=== PATIENT | female | born 1945 | race Caucasian/White ===

== ENCOUNTER 2018-03-02 15:38 | Inpatient (IN) | payer MEDICAID, MEDICARE ==
[~2018-03-02] VITALS: Ht 152.4 cm; Wt 40.8 kg
--- NOTE | 2018-03-02 16:00 | NUR ---
SENT FROM [facility] FOR TACHYCARDIA AND HIGH BLOOD PRESSURE. PATIENT WAS ABLE TO COMPLETE HD TODAY. PATIENT IS AWAKE AND ALERT. NOT IN DISTRESS. SKIN IS WARM TO TOUCH AND NON DIAPHORETIC,. PT IS AFEBRILE. VSS
--- NOTE | 2018-03-02 16:06 | NUR ---
JOANNE [phone], BAG ADJUSTER OF [facility]ARD AND CARE
[2018-03-02 17:04] LABS: BASOPHILS # (AUTO) 0.1 /CMM (0.0-0.2); EOSINOPHILS % (AUTO) 0.1 % (0.0-6.0); HEMATOCRIT 39 % (33-45); HEMOGLOBIN 12.8 g/dL (11.5-14.8); LYMPHOCYTES # (AUTO) 0.5 /CMM (0.8-4.8); LYMPHOCYTES % (AUTO) 5.8 % (20.0-44.0); MEAN CORPUSCULAR HGB CONC 33 g/dl (31.0-36.0); MEAN CORPUSCULAR VOLUME 96 fL (82-100); MONOCYTES # (AUTO) 0.8 /CMM (0.1-1.30); MONOCYTES % (AUTO) 8.7 % (2.0-12.0); NEUTROPHILS # (AUTO) 7.3 /CMM (1.8-8.9); NEUTROPHILS % (AUTO) 84.4 % (43.0-81.0); PLATELET COUNT (AUTO) 270 /CMM (150-450); RDW COEFFICIENT OF VARIATION 15.2 (11.5-15.0); RED BLOOD CELL COUNT(AUTO) 3.99 MIL/uL (4.0-5.2); WHITE BLOOD COUNT (AUTO) 8.8 K/uL (4.3-11.0)
[2018-03-02 17:06] LABS: APPEARANCE,URINE Cloudy (CLEAR); BILIRUBIN,URINE Negative (NEGATIVE); BLOOD, URINE Small Ery/uL (NEGATIVE); COLOR,URINE Yellow (YELLOW); KETONES,URINE Negative (NEGATIVE); LEUKOCYTE ESTERASE ,URINE Large (NEGATIVE); NITRITE, URINE Negative (NEGATIVE); PH,URINE 7.5 (5.0-8.0); PROTEIN,URINE 100 mg/dl (NEGATIVE); UGLUCOSE Negative (NEGATIVE); UROBILINOGEN,URINE 0.2 EU/dL (0.2)
[2018-03-02 17:13] LABS: CALCIUM, SERUM 8.8 mg/dL (8.5-10.1); CARBON DIOXIDE 32 mmol/L (21-32); CHLORIDE 95 mmol/L (98-107); GLUCOSE 99 mg/dL (74-106); POTASSIUM 3.8 mmol/L (3.5-5.1); SODIUM SERUM 130 mmol/L (136-145); UREA NITROGEN, BLOOD 21 mg/dL (7-18)
[2018-03-02 17:15] LABS: BACTERIA,URINE Many /HPF (None Seen); SQUAMOUS EPITHELIAL CELL,UR Rare /HPF (None Seen); WBC,URINE TOO NUMEROUS TO COUN /HPF (0-3)
[2018-03-02 17:19] LABS: ALANINE AMINOTRANSFERASE 11 U/L (12-78); ALBUMIN 3.3 g/dL (3.4-5.0); ALKALINE PHOSPHATASE 75 U/L (46-116); ASPARTATE AMINOTRANSFERASE 15 U/L (15-37); BILIRUBIN,DIRECT 0.1 mg/dL (0.0-0.2); BILIRUBIN,TOTAL 0.4 mg/dL (0.2-1.0); INR 0.95 (0.85-1.15); TOTAL PROTEIN, SERUM 7.5 g/dL (6.4-8.2)
[2018-03-02 17:21] LABS: PHOSPHORUS 2.8 mg/dL (2.5-4.9); TROPONIN I < 0.017 ng/mL (0.00-0.056)
[2018-03-02 17:22] LABS: MAGNESIUM 2.1 mg/dL (1.8-2.4)
[2018-03-02 17:43] LABS: THYROID STIMULATING HORMONE 2.114 uIU/mL (0.358-3.74)
--- NOTE | 2018-03-02 17:58 | NUR ---
CALLED DR. CLARK [phone] AND PAGED
[2018-03-02] MEDS ORDERED: CEFTRIAXONE 1 G in IV D5W 50 ML IV ONE (18:00)
--- NOTE | 2018-03-02 18:23 | NUR ---
CALLED NURSING TELETYPE INSTALLER AND REQUESTED A TELE BED FOR THIS PT.
[2018-03-02] MEDS ORDERED: PRAV20TA4 PO (18:35)
[2018-03-02] MEDS ORDERED: TRAM50TA2 PO (18:35)
[2018-03-02] MEDS ORDERED: DONE10TA44 PO (18:35)
[2018-03-02] MEDS ORDERED: ASPI-1169 PO (18:35)
[2018-03-02] MEDS ORDERED: DOCU100C36 PO (18:35)
[2018-03-02] MEDS ORDERED: LEVE500T20 PO (18:35)
[2018-03-02] MEDS ORDERED: TEMA15CA PO (18:35)
[2018-03-02] MEDS ORDERED: DIVA-78 PO (18:35)
--- NOTE | 2018-03-02 19:53 | NUR ---
REPORT GIVEN TO CHARLOTTE GREEN FOR ADMISSION
--- NOTE | 2018-03-02 19:56 | NUR ---
PT IS ASSIGNED TO TELE RM#: [id number], DX: TACHYCARDIA/UTI, AND ACCEPTING MD: DR ADAMS
[2018-03-02 20:00] VITALS: BP 106/45
--- NOTE | 2018-03-02 20:15 | NUR ---
Pt BEING TRANSFERRED PER ACLS PROTOCOL.
--- NOTE | 2018-03-02 21:25 | NUR ---
RN NOTES RECEIVED PATIENT REPORT FROM ER NURSE PADMAJA. RECEIVED PATIENT ON GURNEY ALERT/ ORIENTED X2-3 WITH SOME EPISODES OF CONFUSION. PATIENT IS ON RA WITH SPO2 OF 97%, SR ON MANAGER INVENTORY CONTROL, VITAL SIGHS ARE WNL, NO SOB, NO RESPIRATORY DISTRESS NOTED AT THIS TIME. SKIN ASSESSMENT IS DONE AND PICTURES IN CHART, WOUND CARE CONSULT IN PLACE. RIGHT CHEST WALL HD CATHETER IN PLACE, INTACT. LEFT UPPER ARM AV SHUNT DRESSING IS INTACT WITH STITCHES. RIGHT UPPER ARM 22G IV LINE IS IN PLACE AND WITH FLUSHING PATIENT COMPLAINS OF PAIN. ALL SAFETY MEASURES ARE IMPLEMENTED, BED IN LOW, LOCKED POSITION, CALL LIGHT IN REACH, DIRECTED TO THE UNIT. WILL CONT. TO MONITOR.
[2018-03-02 22:00] VITALS: BP 106/45
--- NOTE | 2018-03-02 22:10 | NUR ---
RN NOTES CALL THE MD SHTORCH FOR ADMIT TO ORDER AND, DIET ORDER, MEDICATION ORDERS. NEW ORDERS ARE IN PLACE RENAL DIET, ADMIT TO TELEMETRY, CONT. HOME MEDICATIONS FOR NOW.
[2018-03-03] VITALS: BP 106/43
--- NOTE | 2018-03-03 | NUR ---
RN NOTES TALKED TO JOANNE [phone], INSOLE DOUBLER OF BOARD AND CARE TO VERIFY PATIENT'S MEDICATION LAST ADMINISTRATION TIME.
[2018-03-03] MEDS: DONEPEZIL 5 MG TABLET PO SCH ×2 (01:03→17:41)
[2018-03-03] MEDS: LEVETIRACETAM (250 MG) 250 MG TABLET PO SCH ×3 (01:03→16:52)
[2018-03-03] MEDS: TRAMADOL HCL 50 MG TABLET PO PRN ×2 (01:08→14:13)
[2018-03-03 04:00] VITALS: BP 117/46
--- NOTE | 2018-03-03 07:30 | NUR ---
DOG TRAINER INITIAL NOTES PATIENT A/OX3 IN BED AWAKE. ON RA 100% O2 SAT. SR 69. PT IS INCONTINENT. WILL CONTINUE SAFETY PRECAUTIONS. CALL LIGHT IN REACH. PT SOMETIMES CONFUSED.
[2018-03-03 08:00] VITALS: BP 147/59
[2018-03-03] MEDS: DOCUSATE SODIUM 100 MG CAPSULE PO SCH ×2 (08:44→16:52)
[2018-03-03] MEDS: DIVALPROEX SODIUM 500 MG TABLET.DR PO SCH (08:44)
[2018-03-03] MEDS: ASPIRIN 81 MG TAB.CHEW PO SCH (08:44)
--- NOTE | 2018-03-03 10:30 | NUR ---
COMMISSION BROKER NOTES PT EVAL ROUNDED WITH PATIENT: PATIENT REQUIRES MOD ASSISTANCE FROM BED TO CHAIR. CANNOT WALK UNASSISTED.
--- NOTE | 2018-03-03 11:00 | NUR ---
ms rn patient transferred to room 115 1 for isolation precaution purpose of room mate.
--- NOTE | 2018-03-03 11:30 | NUR ---
NEONATAL SURGEON NOTES CORE MACHINE OPERATOR ROUNDED WITH PT. ORDERED RENAL CHOPPED DIET WITH NEPRO SHAKE BID.
--- NOTE | 2018-03-03 11:36 | NUR ---
TRANSVERSE ABDOMINAL MUSCLE NURSE NOTES WOUND NURSE ROUNDING WITH PATIENT: REDNESS ON SACRUM AND GROIN AND SHOULDER SCAB.
--- NOTE | 2018-03-03 11:55 | NUR ---
WOUND CARE CONSULT: PT PRESENTS WITH SACRAL SCARRING, RASH TO BUTTOCKS AND PERINEUM, RT SHOULDER ABRASION, LEFT SHOULDER SCAR, RT UPPER BACK SCAB AND LEFT ARM INCISION WITH IDA (DRESSING DRY/INTACT), ALL PRESENT ON ADMISSION. RECOMMEND SURGICAL FOLLOWUP FOR LEFT ARM INCISION. PT ABLE TO ASSIST WITH TURNING AND REPOSITIONING IN BED. PT STATES THAT SHE SCRATCHED HER SHOULDERS WITH HER FINGERNAILS. RECOMMENDATIONS MADE FOR WOUND CARE AND SKIN PROTECTION. DISCUSSED WITH NURSING STAFF. WILL SEE PRN. LEWIS IN AGREEMENT WITH PLAN OF CARE. Addendum: 03/03/18 at 1158 by LORENZO DAVILA WNDNU Amended: Links added.
[2018-03-03 12:00] VITALS: BP 154/64
[2018-03-03] MEDS ORDERED: NEPRO VAN 237 ML CAN PO PRN (12:30)
[2018-03-03] MEDS ORDERED: Z GUARD REMEDY 2 OZ OINT TP PRN (12:30)
[2018-03-03] MEDS: Z GUARD REMEDY 2 OZ OINT TP SCH (13:18)
[2018-03-03 15:41] LABS: MAGNESIUM 2.2 mg/dL (1.8-2.4)
[2018-03-03 15:49] LABS: TROPONIN I < 0.017 ng/mL (0.00-0.056)
[2018-03-03 15:51] LABS: CHOLESTEROL 112 mg/dL (<200); HDL CHOLESTEROL 48 mg/dL (40-60); LDL 60 mg/dL (0-99); TRIGLYCERIDES 68 mg/dL (30-150)
[2018-03-03 16:00] VITALS: BP 158/69
--- NOTE | 2018-03-03 16:46 | NUR ---
ms rn on bed, no distress noted, all needs attended.
[2018-03-03] MEDS: CLOTRIMAZOLE 1% 15 GM TUBE TP SCH (16:52)
--- NOTE | 2018-03-03 18:57 | NUR ---
DINING CAR CONDUCTOR ENDING NOTES ENDORSED PT TO PM NURE FOR CONTINUING CARE. PT IS STABLE. SAFETY PRECAUTIONS MAINTAINED. CALL LIGHT IN REACH. NOT IN DISTRESS.
[2018-03-03 20:00] VITALS: BP 153/62
[2018-03-03] MEDS: ATORVASTATIN 10 MG TABLET PO SCH (21:45)
[2018-03-03] MEDS: TEMAZEPAM 15 MG CAPSULE PO SCH (21:45)
[2018-03-03] MEDS ORDERED: PRAVASTATIN SODIUM 20 MG TABLET PO SCH (22:00)
[2018-03-04] VITALS: BP 156/72
[2018-03-04 04:00] VITALS: BP 162/73
--- NOTE | 2018-03-04 06:42 | NUR ---
RN NOTES PATIENT IN BED RESTING COMFORTABLY WITH NO RESPIRATORY DISTRESS OR SHORTNESS OF BREATH. ON ROOM AIR TOLERATING WELL. ABDOMEN SOFT AND NON TENDER. ALERT WITH CONFUSION. NO COMPLAINT OF PAIN OR DISCOMFORT. NO SIGNIFICANT CHANGE OF CONDITION. KEPT CLEAN AND DRY. WILL ENDORSE TO AM SHIFT FOR CONTINUITY OF CARE
--- NOTE | 2018-03-04 07:15 | NUR ---
TELE/ RN INITIAL NOTES RECEIVED PT IN BED, A/O X2. SINUS TACHY HR:102 ON TELEMONITOR. DENIES ANY PAIN AT THIS TIME. TOLERATING ROOM AIR WELL. HD CATH INTACT. MAGAN G22 SL INTACT AND PATENT. HOB ELEVATED. SAFETY MEASURES IN PLACED. CALL LIGHT WITHIN REACH. WILL CONT TO MONITOR
[2018-03-04 08:00] VITALS: BP 128/88
[2018-03-04] MEDS: DIVALPROEX SODIUM 500 MG TABLET.DR PO SCH (08:25)
[2018-03-04] MEDS: LEVETIRACETAM (250 MG) 250 MG TABLET PO SCH ×2 (08:25→17:11)
[2018-03-04] MEDS: ASPIRIN 81 MG TAB.CHEW PO SCH (08:25)
[2018-03-04] MEDS: DOCUSATE SODIUM 100 MG CAPSULE PO SCH ×2 (08:25→17:11)
[2018-03-04] MEDS: CLOTRIMAZOLE 1% 15 GM TUBE TP SCH ×2 (08:33→17:13)
[2018-03-04] MEDS: Z GUARD REMEDY 2 OZ OINT TP SCH (08:34)
[2018-03-04 16:00] VITALS: BP 147/69
--- NOTE | 2018-03-04 17:00 | NUR ---
RN NOTES DIALYSIS NURSE AT BEDSIDE. DIALYSIS STARTED
[2018-03-04] MEDS: DONEPEZIL 5 MG TABLET PO SCH (17:11)
--- NOTE | 2018-03-04 18:00 | NUR ---
RN NOTES PT STILL ON HD. IV CEFTRIAXONE NOT YET GIVEN. TO BE GIVEN AFTER HD
--- NOTE | 2018-03-04 19:21 | NUR ---
RN NOTES PT IN STABLE CONDITION. NO ACUTE DISTRESS NOTED THROUGHOUT SHIFT. STILL ONGOING HD. ASPIRATION AND SAFETY MEASURES OBSERVED AT ALL TIMES. ALL NEEDS ANTICIPATED. IV CEFTRIAXONE TO BE GIVEN BY PM RN AFTER HD. ENDORSED TO PM SHIFT RN
[2018-03-04 20:00] VITALS: BP 100/56
[2018-03-04] MEDS: CEFTRIAXONE 1 G in IV D5W 50 ML IV SCH (20:33)
[2018-03-04] MEDS: ATORVASTATIN 10 MG TABLET PO SCH (21:21)
[2018-03-04] MEDS: TEMAZEPAM 15 MG CAPSULE PO SCH (21:21)
[2018-03-05 04:00] VITALS: BP 147/79
--- NOTE | 2018-03-05 06:48 | NUR ---
RN NOTES PATIENT AWAKE IN BED, WITH NO DISTRESS NOTED. ALERT WITH CONFUSION. NO COMPLAINT OF PAIN OR DISCOMFORT. ON ROOM AIR TOLERATING WELL. NO SIGNIFICANT CHANGE OF CONDITION. KEPT CLEAN AND DRY. WILL ENDORSE TO AM SHIFT FOR CONTINUITY OF CARE.
[2018-03-05 07:30] LABS: BASOPHILS % (AUTO) 0.4 % (0.0-2.0); EOSINOPHILS % (AUTO) 0.2 % (0.0-6.0); HEMATOCRIT 33 % (33-45); HEMOGLOBIN 10.8 g/dL (11.5-14.8); LYMPHOCYTES # (AUTO) 0.8 /CMM (0.8-4.8); LYMPHOCYTES % (AUTO) 18.9 % (20.0-44.0); MEAN CORPUSCULAR HGB CONC 33 g/dl (31.0-36.0); MEAN CORPUSCULAR VOLUME 99 fL (82-100); MONOCYTES # (AUTO) 0.6 /CMM (0.1-1.30); NEUTROPHILS % (AUTO) 66.5 % (43.0-81.0); PLATELET COUNT (AUTO) 346 /CMM (150-450); RDW COEFFICIENT OF VARIATION 15.3 (11.5-15.0); RED BLOOD CELL COUNT(AUTO) 3.37 MIL/uL (4.0-5.2); WHITE BLOOD COUNT (AUTO) 4.5 K/uL (4.3-11.0)
[2018-03-05 07:34] LABS: CALCIUM, SERUM 8.6 mg/dL (8.5-10.1); CARBON DIOXIDE 25 mmol/L (21-32); CHLORIDE 103 mmol/L (98-107); CREATININE 2.6 mg/dL (0.6-1.3); GLUCOSE 90 mg/dL (74-106); PHOSPHORUS 3.2 mg/dL (2.5-4.9); POTASSIUM 4.4 mmol/L (3.5-5.1); SODIUM SERUM 137 mmol/L (136-145); UREA NITROGEN, BLOOD 25 mg/dL (7-18)
[2018-03-05 07:44] VITALS: BP 133/96
[2018-03-05 08:00] VITALS: BP 133/96
[2018-03-05] MEDS: Z GUARD REMEDY 2 OZ OINT TP SCH (08:26)
[2018-03-05] MEDS: DOCUSATE SODIUM 100 MG CAPSULE PO SCH ×2 (08:26→16:27)
[2018-03-05] MEDS: CLOTRIMAZOLE 1% 15 GM TUBE TP SCH ×2 (08:26→16:27)
[2018-03-05] MEDS: DIVALPROEX SODIUM 500 MG TABLET.DR PO SCH (08:26)
[2018-03-05] MEDS: ASPIRIN 81 MG TAB.CHEW PO SCH (08:27)
[2018-03-05] MEDS: LEVETIRACETAM (250 MG) 250 MG TABLET PO SCH ×2 (08:27→16:27)
[2018-03-05] MEDS: TRAMADOL HCL 50 MG TABLET PO PRN (12:04)
--- NOTE | 2018-03-05 12:19 | NUR ---
Repositioned patient. DAIRY FARMWORKER gave her a tray of food.
--- NOTE | 2018-03-05 16:39 | NUR ---
Repositioned patient. Took pictures of skin problems and placed in chart. Patient awaiting ambulance. Left message for Hillary with [facility] to return call with report prior to discharge.
[2018-03-05] MEDS: CEFTRIAXONE 1 G in IV D5W 50 ML IV SCH (17:05)
--- NOTE | 2018-03-05 18:30 | NUR ---
Discharged patient with caregiver, Hillary, to take patient to her home in private auto. She had been given all instructions and a copy of them. Intravenous site discontinued. Left wrist identification discontinued. Patient taken out via wheelchair with AUTO BODY STRAIGHTENER assistance. Patient was buckled into white [employer] automobile by her caregiver, Hillary. Belongings of clothing missing from inventory. Brown wrist watch present upon discharge.
== END 2018-03-05 18:22 | disposition home or self-care (01) | DRG 689 ==
LOC: ER 15:40 → TELE1 20:04 → MEDSG1 03-04 09:15
PROVIDERS: ADMIT Internal Medicine; ATTEND Internal Medicine
PROC: 5A1D70Z Performance of Urinary Filtration, Intermittent, Less than 6 Hours Per Day (ICD-10-PCS; principal; 2018-03-04)
DX: N39.0 Urinary tract infection, site not specified (principal); N18.6 End stage renal disease; I12.0 Hypertensive chronic kidney disease with stage 5 chronic kidney disease or end stage renal disease; R00.0 Tachycardia, unspecified; G40.909 Epilepsy, unspecified, not intractable, without status epilepticus; Z99.2 Dependence on renal dialysis; M19.90 Unspecified osteoarthritis, unspecified site; M81.0 Age-related osteoporosis without current pathological fracture; D64.9 Anemia, unspecified; T38.0X5A Adverse effect of glucocorticoids and synthetic analogues, initial encounter; Y92.89 Other specified places as the place of occurrence of the external cause; F03.90 Unspecified dementia, unspecified severity, without behavioral disturbance, psychotic disturbance, mood disturbance, and anxiety
CPT/HCPCS: 36415; 71045-TC; 80048-TC; 80061-TC; 80076-TC; 81000-TC; 83605-TC; 83735-TC; 84100-TC; 84439-TC; 84443-TC; 84484-TC; 85025-TC; 85730-TC; 87040-TC; 87081-TC; 87086-TC; 87186-TC; 90935-TC; 93307-TC; A4606; J0696; J7030; J7060; Z7610

== ENCOUNTER 2019-05-20 18:06 | Emergency (ER) | payer MEDICARE ==
[~2019-05-20] VITALS: Ht 162.6 cm; Wt 59.0 kg
[~2019-05-20 18:06] MED LIST: ASPI-1169 PO; DIVA-78 PO; DOCU100C36 PO; DONE10TA44 PO; LEVE500T20 PO; PRAV20TA4 PO; TEMA15CA PO; TRAM50TA2 PO
--- NOTE | 2019-05-20 18:11 | NUR ---
BIB PEST TECHNICIAN FROM [facility] FOR COUGH, CONGESTION, UPPER CHEST PAIN AND DIARRHEA FOR THE PAST 3 DAYS, TO ER BED 10, HOOKED TO MONITOR, CHANGED TO HOSP GOWN, PROVIDED W WARM BLANKET, AWAITING MD CREWS.
--- NOTE | 2019-05-20 18:19 | NUR ---
DR CANTU AT BEDSIDE
--- NOTE | 2019-05-20 18:25 | NUR ---
RAPID FLU SWAB SENT TO LAB
--- NOTE | 2019-05-20 18:29 | NUR ---
SON: ISRA ENDYMajor [phone] SINGLE END SEWER AT [facility]: JOANNE [phone]
[2019-05-20] MEDS ORDERED: IPRATROPIUM NEB FS 0.5 MG/2.5 ML AMPUL.NEB NEB ONE (18:30)
[2019-05-20] MEDS ORDERED: ALBUTEROL FS 2.5 MG/3 ML VIAL.NEB NEB ONE (18:30)
[2019-05-20] MEDS ORDERED: IPRATROPIUM NEB FS 0.5 MG/2.5 ML AMPUL.NEB ONE (18:45)
[2019-05-20] MEDS ORDERED: ALBUTEROL FS 2.5 MG/3 ML VIAL.NEB ONE (18:45)
--- NOTE | 2019-05-20 18:51 | NUR ---
ONGOING BREATHING TX
[2019-05-20 18:52] LABS: BASOPHILS # (AUTO) 0.1 /CMM (0.0-0.2); BASOPHILS % (AUTO) 0.6 % (0.0-2.0); EOSINOPHILS % (AUTO) 1.1 % (0.0-6.0); HEMATOCRIT 33 % (33-45); LYMPHOCYTES # (AUTO) 1.4 /CMM (0.8-4.8); LYMPHOCYTES % (AUTO) 11.7 % (20.0-44.0); MEAN CORPUSCULAR HGB CONC 33 g/dl (31.0-36.0); MEAN CORPUSCULAR VOLUME 107 fL (82-100); MONOCYTES # (AUTO) 0.9 /CMM (0.1-1.30); MONOCYTES % (AUTO) 7.4 % (2.0-12.0); NEUTROPHILS # (AUTO) 9.5 /CMM (1.8-8.9); NEUTROPHILS % (AUTO) 79.2 % (43.0-81.0); PLATELET COUNT (AUTO) 253 /CMM (150-450); RED BLOOD CELL COUNT(AUTO) 3.09 MIL/uL (4.0-5.2); WHITE BLOOD COUNT (AUTO) 11.9 K/uL (4.3-11.0)
[2019-05-20 19:04] LABS: CALCIUM, SERUM 8.4 mg/dL (8.5-10.1); CARBON DIOXIDE 26 mmol/L (21-32); CHLORIDE 97 mmol/L (98-107); CREATININE 3.7 mg/dL (0.6-1.3); GLUCOSE 99 mg/dL (74-106); POTASSIUM 4.3 mmol/L (3.5-5.1); SODIUM SERUM 132 mmol/L (136-145); UREA NITROGEN, BLOOD 39 mg/dL (7-18)
[2019-05-20 19:08] LABS: ALANINE AMINOTRANSFERASE < 6 U/L (12-78); ALBUMIN 2.9 g/dL (3.4-5.0); ALKALINE PHOSPHATASE 71 U/L (46-116); ASPARTATE AMINOTRANSFERASE 8 U/L (15-37); BILIRUBIN,DIRECT 0.1 mg/dL (0.0-0.2); BILIRUBIN,TOTAL 0.2 mg/dL (0.2-1.0); TOTAL PROTEIN, SERUM 6.7 g/dL (6.4-8.2)
--- NOTE | 2019-05-20 19:31 | NUR ---
REPORT GIVEN TO ED RN FOR ELO
[2019-05-20 19:38] LABS: EOSINOPHILS % (MANUAL) 1 % (0-4); LYMPHOCYTES % (MANUAL) 11 % (16-48); MONOCYTES % (MANUAL) 8 % (0-11.0); NEUTROPHILS % (MANUAL) 80 (42-76)
--- NOTE | 2019-05-20 20:18 | NUR ---
CALLED JOANNE FROM [facility], STATES WILL ARRANGE TRANSPORT FOR PT BACK TO FACILITY
--- NOTE | 2019-05-20 20:59 | NUR ---
ETA 10 MINUTES
[2019-05-20 21:09] VITALS: BP 138/72
== END 2019-05-20 21:16 | disposition home or self-care (01) ==
LOC: ER 18:07
DX: J45.909 Unspecified asthma, uncomplicated (principal); I12.0 Hypertensive chronic kidney disease with stage 5 chronic kidney disease or end stage renal disease; N18.6 End stage renal disease; Z99.2 Dependence on renal dialysis; Z88.1 Allergy status to other antibiotic agents; Z88.8 Allergy status to other drugs, medicaments and biological substances; Z79.899 Other long term (current) drug therapy; Z79.82 Long term (current) use of aspirin
CPT/HCPCS: 36415; 71045-TC; 80048-TC; 80076-TC; 84484-TC; 85025-TC

== ENCOUNTER 2022-08-05 18:16 | Inpatient (IN) | payer MEDICARE, OTHER ==
[~2022-08-05] VITALS: Ht 167.6 cm; Wt 45.9 kg
[~2022-08-05 18:16] MED LIST changes: +ALPR0.255 PO; +CHOL200010 PO; +SEVE800T8 PO; +TIMO5DRO35 EACHEYE
--- NOTE | 2022-08-05 18:59 | NUR ---
RT paged for breathing treatment
[2022-08-05] MEDS ORDERED: ALBUTEROL FS 2.5 MG/3 ML VIAL.NEB NEB ONE ×2 (19:00→20:30)
[2022-08-05] MEDS ORDERED: predniSONE 20 MG TABLET PO ONE (19:00)
[2022-08-05] MEDS ORDERED: IPRATROPIUM NEB FS 0.5 MG/2.5 ML AMPUL.NEB NEB ONE (19:00)
--- NOTE | 2022-08-05 19:00 | NUR ---
IV ACCESS ESTABLISHED. 22G LEFT FOREARM. BLOOD DRAWN AND SENT TO LAB.
--- NOTE | 2022-08-05 19:06 | NUR ---
COVID SWAB TAKEN AND SENT TO LAB
[2022-08-05] MEDS ORDERED: IPRATROPIUM NEB FS 0.5 MG/2.5 ML AMPUL.NEB ONE (19:11)
[2022-08-05] MEDS ORDERED: ALBUTEROL FS 2.5 MG/3 ML VIAL.NEB ONE ×2 (19:11→20:57)
[2022-08-05] MEDS ORDERED: predniSONE 20 MG TABLET ONE (19:18)
[2022-08-05] MEDS ORDERED: IV NS 0.9% 1,000 ML BAG IV ONE (19:30)
--- NOTE | 2022-08-05 20:12 | NUR ---
PT IN BED BREATHING IS EVEN AND SHALLOW RONCHI AUSCULTATED. A/O X2 BREATHING TREAMTNET GIVEN. COMING FROM HOME BED RAILS UP CONNECTED TO BED SIDE MONITOR.
[2022-08-05 20:13] LABS: CALCIUM, SERUM 9.2 mg/dL (8.5-10.1); CARBON DIOXIDE 25 mmol/L (21-32); CHLORIDE 99 mmol/L (98-107); CREATININE 3.2 mg/dL (0.6-1.3); GLUCOSE 99 mg/dL (74-106); POTASSIUM 5.8 mmol/L (3.5-5.1); SODIUM SERUM 131 mmol/L (136-145); UREA NITROGEN, BLOOD 22 mg/dL (7-18)
[2022-08-05 20:18] LABS: BASOPHILS % (AUTO) 0.2 % (0.0-2.0); HEMATOCRIT 36 % (33-45); HEMOGLOBIN 11.1 g/dL (11.5-14.8); LYMPHOCYTES # (AUTO) 0.7 K/uL (0.8-4.8); LYMPHOCYTES % (AUTO) 5.2 % (20.0-44.0); MEAN CORPUSCULAR HGB CONC 31 g/dl (31.0-36.0); MEAN CORPUSCULAR VOLUME 102 fL (82-100); MONOCYTES # (AUTO) 0.9 K/uL (0.1-1.30); MONOCYTES % (AUTO) 6.7 % (2.0-12.0); NEUTROPHILS # (AUTO) 11.8 K/uL (1.8-8.9); NEUTROPHILS % (AUTO) 86.9 % (43.0-81.0); PLATELET COUNT (AUTO) 319 K/uL (150-450); RED BLOOD CELL COUNT(AUTO) 3.48 MIL/uL (4.0-5.2); WHITE BLOOD COUNT (AUTO) 13.5 K/uL (4.3-11.0)
[2022-08-05] MEDS ORDERED: CEFTRIAXONE 1GM BAG (ER ONLY) 1 GM/50 ML PIGGYBACK IV ONE (20:30)
[2022-08-05] MEDS ORDERED: CEFTRIAXONE 1GM BAG (ER ONLY) 50 ML IV ONE (20:39)
--- NOTE | 2022-08-05 21:01 | NUR ---
[facility] PAGED
[2022-08-05 21:15] LABS: MAGNESIUM 2.1 mg/dL (1.8-2.4); PHOSPHORUS 5.6 mg/dL (2.5-4.9)
--- NOTE | 2022-08-05 21:57 | NUR ---
RM [id number]
[2022-08-05] MEDS ORDERED: Z GUARD REMEDY 4 OZ OINT TP PRN (22:00)
[2022-08-05] MEDS ORDERED: INSULIN REGULAR, HUMAN 100 UNIT/ML 10 ML VIAL IV ONE (22:00)
[2022-08-05] MEDS ORDERED: DEXTROSE 50%-WATER 50 ML DISP.SYRIN IVP ONE (22:00)
[2022-08-05] MEDS ORDERED: ACETAMINOPHEN 325 MG TABLET PO PRN (22:00)
[2022-08-05] MEDS ORDERED: ONDANSETRON HCL/PF 4 MG/2 ML VIAL IVP PRN (22:00)
[2022-08-05] MEDS ORDERED: GUAIFENESIN LA 600 MG TABLET.SA PO PRN (22:00)
--- NOTE | 2022-08-05 22:21 | NUR ---
CALLED FACILITY TO OBTAIN PT'S CORPORATE LOGISTICS MANAGER NAME. CORPORATE LOGISTICS MANAGER IS DR. ELDA CLARK
--- NOTE | 2022-08-05 22:21 | NUR ---
REPORT GIVEN TO MILENA RN 3W FOR INPATIENT ADMISSION.
[2022-08-05 23:00] VITALS: BP 139/73
[2022-08-05] MEDS: IPRATROPIUM NEB FS 0.5 MG/2.5 ML AMPUL.NEB NEB SCH (23:21)
[2022-08-05] MEDS: ALBUTEROL FS 2.5 MG/0.5 ML VIAL.NEB NEB SCH (23:21)
[2022-08-05] MEDS ORDERED: SODIUM POLYSTYRENE SULFONATE 15 G/60 ML BOTTLE ONE (23:46)
[2022-08-05] MEDS: SODIUM POLYSTYRENE SULFONATE 15 G/60 ML BOTTLE PO SCH (23:51)
--- NOTE | 2022-08-06 | NUR ---
STORE FACILITY TECHNICIANDEBARKER OPERATOR NOTES - RECEIVED PATIENT FROM ED VIA GURNEY AT 2250 UNDER THE CARE OF SMITHA HART WITH DX OF COPD EXACERBATION. PATIENT IS A/O X3 BUT WITH PERIODS OF CONFUSION AND A POOR HISTORIAN. SHE ALSO STARTS SCREAMING WHEN WE GIVE CARE. PATIENT IS ON O2 AT 2LPM VIA NASAL CANULA, BREATHING EVEN AND NON-LABORED. OCCASIONAL COUGHING AND WHEEZING NOTED. NOT IN APPARENT DISTRESS. NO C/O PAIN OR DISCOMFORT AT THIS TIME. HAS LEFT FOREARM IV ACCESS #22G WITH NS RUNNING WIDE OPEN. NO S/S OF INFILTRATION NOTED. V/S TAKEN AND SKIN ASSESSMENT DONE. ALL BELONGINGS ACCOUNTED FOR. ORIENTED PATIENT TO UNIT AND STAFF. SAFETY PRECAUTIONS IN PLACE: BED LOCKED AND IN LOW POSITION, SIDE RAILS UP X3, CALL LIGHT WITHIN REACH. WILL CONTINUE PLAN OF CARE.
--- NOTE | 2022-08-06 00:24 | NUR ---
INSULIN AND D5 DEXTROSE GIVEN TO LOWER DOWN POTASSIUM.
[2022-08-06] MEDS ORDERED: DOCUSATE SODIUM 100 MG CAPSULE PO PRN (02:30)
[2022-08-06] MEDS ORDERED: TEMAZEPAM 15 MG CAPSULE PO PRN (02:30)
[2022-08-06] MEDS ORDERED: TRAMADOL HCL 50 MG TABLET PO PRN (02:30)
[2022-08-06 03:32] LABS: EOSINOPHILS % (MANUAL) 2 % (0-4); LYMPHOCYTES % (MANUAL) 8 % (16-48); MONOCYTES % (MANUAL) 7 % (0-11.0); NEUTROPHILS % (MANUAL) 83 (42-76)
[2022-08-06 05:00] VITALS: BP 99/53
--- NOTE | 2022-08-06 06:34 | NUR ---
CALLED ISRA CASILLAS AT [phone] TO GET CONSENT FOR HEMODIALYSIS BUT WENT TO . LEFT MESSAGE AND CALLBACK NUMBER.
--- NOTE | 2022-08-06 07:08 | NUR ---
EMERGENCY RESPONSE TECHNICIAN CLOSING NOTES - PATIENT SLEEPING IN BED, EASY TO AROUSE. RESPONDS TO SOME QUESTIONS. NO SOB OR NOTED, TOLERATING O2 AT 2LPM. AFEBRILE. NO S/S OF PAIN OR DISCOMFORT AT THIS TIME. ON TELE MONITOR READING SINUS RHYTHM AT 78 BPM. LEFT FOREARM IV ACCESS #22G INTACT, PATENT AND FLUSHING. CPR AMBULANCE DRIVER UNABLE TO DRAW BLOOD SINCE PATIENT IS COMBATIVE. ALL DUE MEDS GIVEN AND NEEDS ATTENDED. SAFETY PRECAUTIONS MAINTAINED. WILL ENDORSE TO NEXT SHIFT FOR ELO.
[2022-08-06] MEDS: IPRATROPIUM NEB FS 0.5 MG/2.5 ML AMPUL.NEB NEB SCH ×4 (07:16→19:53)
[2022-08-06] MEDS: ALBUTEROL FS 2.5 MG/0.5 ML VIAL.NEB NEB SCH ×4 (07:16→19:52)
--- NOTE | 2022-08-06 07:36 | NUR ---
OPERATIONS SPECIALISTS CLOSING NOTES - PATIENT SLEEPING IN BED, AROUSABLE . NO SOB OR DISTRESS NOTED, TOLERATING O2 AT 2LPM. AFEBRILE. NO S/S OF PAIN OR DISCOMFORT AT THIS TIME. ON TELE MONITOR READING SINUS RHYTHM AT 72 BPM. LEFT FOREARM IV ACCESS #22G INTACT, PATENT AND INTACT . ISRA CASILLAS - FAMILY MEMBER CALLED BACK AND GAVE CONSENT REGARDING THE HEMODIALYSIS VERIFIED WITH THE OTHER RN . SAFETY PRECAUTIONS MAINTAINED. WILL MONITOR FOR NAY CHANGES . Addendum: 08/06/22 at 1017 by LI NGUYEN RN WRONG DOCUMENTATION DISREGARD THIS NOTES
--- NOTE | 2022-08-06 07:46 | NUR ---
BODY PRESSER OPENING NOTES - PATIENT SLEEPING IN BED, AROUSABLE . NO SOB OR DISTRESS NOTED, TOLERATING O2 AT 2LPM. AFEBRILE. NO S/S OF PAIN OR DISCOMFORT AT THIS TIME. ON TELE MONITOR READING SINUS RHYTHM AT 72 BPM. LEFT FOREARM IV ACCESS #22G INTACT, PATENT AND INTACT . ISRA SONJA - FAMILY MEMBER CALLED BACK AND GAVE CONSENT REGARDING THE HEMODIALYSIS VERIFIED WITH THE OTHER RN . SAFETY PRECAUTIONS MAINTAINED. WILL MONITOR FOR NAY CHANGES .
[2022-08-06] MEDS ORDERED: NEPRO VAN 237 ML CAN PO PRN (08:30)
[2022-08-06] MEDS: CHOLECALCIFEROL 1,000 UNIT TABLET (VIT D3) PO SCH (08:31)
[2022-08-06] MEDS: methylPREDNISolone SOD SUCC 40 MG/ML VIAL IV SCH ×2 (08:31→17:18)
[2022-08-06] MEDS: SEVELAMER CARBONATE 800 MG TABLET PO SCH ×3 (08:31→17:18)
[2022-08-06] MEDS: DONEPEZIL 5 MG TABLET PO SCH (08:32)
[2022-08-06] MEDS: LEVETIRACETAM (250 MG) 250 MG TABLET PO SCH ×2 (08:32→17:18)
[2022-08-06] MEDS: DIVALPROEX SODIUM 500 MG TABLET.DR PO SCH (08:32)
[2022-08-06] MEDS: PANTOPRAZOLE 40 MG TABLET.DR PO SCH (08:32)
[2022-08-06] MEDS: ASPIRIN 81 MG TAB.CHEW PO SCH (08:32)
[2022-08-06] MEDS: HEPARIN SODIUM, PORCINE 5000 UNITS/1 ML VIAL SQ SCH ×2 (08:35→17:18)
--- NOTE | 2022-08-06 08:47 | NUR ---
WOUND CARE CONSULT: PT HAVING PROCEDURE AND HEMODIALYSIS AT THIS TIME. REVIEWED CHART, NURSING DOCUMENTATION AND PHOTOS WHICH INDICATE MULTIPLE AREAS OF SKIN DISCOLORATION, SCABS, LEFT HEEL INTACT DEEP TISSUE INJURY AND SACRAL SCARRING, ALL PRESENT ON ADMISSION. RECOMMENDATIONS MADE FOR SKIN PROTECTION. DISCUSSED WITH NURSING STAFF. MD IN AGREEMENT WITH PLAN OF CARE.
[2022-08-06] MEDS: TIMOLOL 0.5% SOLN OPHTH 5 ML BOTTLE EACHEYE SCH ×2 (08:58→17:18)
[2022-08-06] MEDS: SODIUM POLYSTYRENE SULFONATE 15 G/60 ML BOTTLE PO SCH (09:00)
[2022-08-06 09:04] LABS: BASOPHILS % (AUTO) 0.2 % (0.0-2.0); HEMATOCRIT 27 % (33-45); HEMOGLOBIN 8.7 g/dL (11.5-14.8); LYMPHOCYTES # (AUTO) 0.5 K/uL (0.8-4.8); LYMPHOCYTES % (AUTO) 8.8 % (20.0-44.0); MEAN CORPUSCULAR HGB CONC 33 g/dl (31.0-36.0); MEAN CORPUSCULAR VOLUME 100 fL (82-100); MONOCYTES # (AUTO) 0.2 K/uL (0.1-1.30); MONOCYTES % (AUTO) 2.7 % (2.0-12.0); NEUTROPHILS # (AUTO) 5.4 K/uL (1.8-8.9); NEUTROPHILS % (AUTO) 88.3 % (43.0-81.0); PLATELET COUNT (AUTO) 244 K/uL (150-450); RED BLOOD CELL COUNT(AUTO) 2.66 MIL/uL (4.0-5.2); WHITE BLOOD COUNT (AUTO) 6.1 K/uL (4.3-11.0)
[2022-08-06 09:22] LABS: CALCIUM, SERUM 8.3 mg/dL (8.5-10.1); CARBON DIOXIDE 27 mmol/L (21-32); CHLORIDE 101 mmol/L (98-107); CREATININE 2.9 mg/dL (0.6-1.3); GLUCOSE 106 mg/dL (74-106); MAGNESIUM 1.7 mg/dL (1.8-2.4); PHOSPHORUS 4.1 mg/dL (2.5-4.9); POTASSIUM 3.9 mmol/L (3.5-5.1); SODIUM SERUM 132 mmol/L (136-145); UREA NITROGEN, BLOOD 24 mg/dL (7-18)
[2022-08-06 09:39] LABS: THYROID STIMULATING HORMONE 4.006 uIU/mL (0.358-3.74)
[2022-08-06] MEDS ORDERED: ALTEPLASE CATHFLO 2 MG/VIAL XX ONE (10:00)
--- NOTE | 2022-08-06 10:22 | NUR ---
RN NOTES PATIENT WITH ORDER OF KAYEXALATE AT 0900 AT NON ADMIN RELATED TO K LEVEL IS NOW 3.9 , DR PILLAI AWARE AND HE ORDERED TO D/C ORDER
[2022-08-06 12:04] VITALS: BP 110/60
--- NOTE | 2022-08-06 15:00 | NUR ---
RN NOTES EXPLAINED TO PATIENT THAT WE HAVE TO COLLECT URINE FOR U/A AND URINE CULTURE BUT PATIENT REFUSED , OFFERED 3 X
[2022-08-06 15:57] VITALS: BP 130/67
--- NOTE | 2022-08-06 18:33 | NUR ---
CLIENT SERVICES ASSISTANT CLOSING NOTES - PATIENT ON BED AWAKE , A/OX 2-3 , VERBALLT RESPONSIVE . NO SOB OR DISTRESS NOTED, TOLERATING O2 AT 2LPM. AFEBRILE. NO S/S OF PAIN OR DISCOMFORT AT THIS TIME. ON TELE MONITOR READING SINUS RHYTHM AT 70 'S BPM. LEFT FOREARM IV ACCESS #22G INTACT, PATENT AND INTACT . RIGHT CHEST WALL PERMA CATH FOR HD ACCESS, DIALYSIS DONE BUT STOPPED DUE TO HIGH BP , ALL DUE MEDS ORDERED , WITH ORDER FOR U/A AND CULTURE BUR PATIENT REFUSED . SAFETY PRECAUTIONS MAINTAINED. WILL ENDORSED TO NEXT SHIFT .
--- NOTE | 2022-08-06 19:45 | NUR ---
TELE LIBRARY CATALOGING TECHNICIAN INITIAL NOTES RECEIVED PT IN BED AWAKE AND CONFUSED, NOTICED HARD OF HEARING. RE-ORIENTED WHERE SHE AT . SPOKE TO HER REGARDING HER BREATHING TREATMENT BECAUSE PT REFUSED WHEN RT SPOKE TO HER. AFTER I EXPLAINED TO HER WHY SHE NEEDS IT THEN SHE AGREED TO HAVE IT. SKIN WARM AND DRY TO TOUCH. NOT IN ANY DISCOMFORT. SHE'S ON O2 AT 2 LITERS VIA NASAL CANULA. SHE ALSO ON TELE SINUS RHYTHM PER MONITOR KEPT HER WARM AND COMFORTABLE AT ALL TIMES. BED IN LOW AND LOCK IN POSITION WITH SIDE RAILS X3 UP AND BED ALARM SET FOR SAFETY. WILL CONTINUE MONITORING.
[2022-08-06] MEDS: CEFTRIAXONE 1 G in IV D5W 50 ML IV SCH (20:50)
[2022-08-06] MEDS: ATORVASTATIN 10 MG TABLET PO SCH (21:46)
--- NOTE | 2022-08-06 21:50 | NUR ---
tele confectionery maker notes Rocephin given by another nurse, no adversed reaction noted. kept her warm and comfortable at all times. will continue monitoring.
[2022-08-07] VITALS: BP 117/58
--- NOTE | 2022-08-07 02:39 | NUR ---
tele boiler welder notes pt resting comfortably in bed without any discomfort or any distress noted. Tele Sinus Rhythm per monitor.
[2022-08-07 05:00] VITALS: BP 112/59
[2022-08-07 07:00] VITALS: BP 125/68
--- NOTE | 2022-08-07 07:05 | NUR ---
tele vln closing notes Pt awake at this time and watching TV at this time, denies any pain or any discomfort. Stable throughout the night and all needs met. Tele Sinus Rhythm per monitor , Vital stable throughout the night. Morning care rendered as well as skin care. Remedy z-guard applied to affected area. Kept her warm and comfortable at all times. on semi fowlers position with side rails up and bed in low and lock in position with bed alarm set for safety. will endorse to am nurse for continuity of care. place call light at reach.
[2022-08-07] MEDS: ALBUTEROL FS 2.5 MG/0.5 ML VIAL.NEB NEB SCH ×4 (07:35→20:23)
[2022-08-07] MEDS: IPRATROPIUM NEB FS 0.5 MG/2.5 ML AMPUL.NEB NEB SCH ×4 (07:35→20:23)
--- NOTE | 2022-08-07 07:57 | NUR ---
ADMINISTRATIVE SUPPORT MANAGER OPENING NOTES: RECEIVED PATIENT IN BED AWAKE,A/OX 2-3, RIGHT SIDED HARD OF HEARING, OTHERWISE ABLE TO VERBALIZE NEEDS. ON O2 AT 2LP, NO SOB OR DISTRESS NOTED. DENIES PAIN OR DISCOMFORT AT THIS TIME. TELE MONITOR READS SINUS RHYTHM AT HR=71 CURRENTLY. LEFT IV ACCESS L FA #22G, SL, PATENT AND INTACT. RIGHT CHEST WALL PERMA CATH FOR HD ACCESS. ALL SAFETY PRECAUTIONS MAINTAINED, CALL LIGHT AND TABLE WITHIN EASY REACH, WILL CONT WITH PLAN OF CARE DURING SHIFT.
[2022-08-07] MEDS: HEPARIN SODIUM, PORCINE 5000 UNITS/1 ML VIAL SQ SCH ×3 (08:40→17:26)
[2022-08-07] MEDS: DONEPEZIL 5 MG TABLET PO SCH (08:42)
[2022-08-07] MEDS: CHOLECALCIFEROL 1,000 UNIT TABLET (VIT D3) PO SCH (08:42)
[2022-08-07] MEDS: PANTOPRAZOLE 40 MG TABLET.DR PO SCH (08:42)
[2022-08-07] MEDS: methylPREDNISolone SOD SUCC 40 MG/ML VIAL IV SCH ×2 (08:42→17:25)
[2022-08-07] MEDS: SEVELAMER CARBONATE 800 MG TABLET PO SCH ×3 (08:42→17:25)
[2022-08-07] MEDS: LEVETIRACETAM (250 MG) 250 MG TABLET PO SCH ×2 (08:42→17:25)
[2022-08-07] MEDS: ASPIRIN 81 MG TAB.CHEW PO SCH (08:42)
[2022-08-07] MEDS: DIVALPROEX SODIUM 500 MG TABLET.DR PO SCH (08:42)
[2022-08-07] MEDS: TIMOLOL 0.5% SOLN OPHTH 5 ML BOTTLE EACHEYE SCH ×2 (08:54→17:31)
--- NOTE | 2022-08-07 08:55 | NUR ---
RN NOTES: PT REFUSED AM LABS, PT GETS AGITATED WHEN LAB STAFF PLACE TOURNIQUET, RN EXPLAINED IMPORTANCE OF BLOOD TESTS, PT STILL REFUSED, RN AND TECH AGREED WILL TAKE BLOOD WHEN PT DOES HD ON 08/08/22, MADE CHARGE AWARE. PT ALSO REFUSED AM HEPARIN, STATES SHE DOESN'T WANT ANYMORE SHOTS, RN EXPLAINED RATIONALE FOR MED, PT STILL REFUSED, RN DISCARDED MED PER UNIT PROTOCOL.
--- NOTE | 2022-08-07 10:28 | NUR ---
RN NOTES: PT IS CURRENTLY STABLE, AM MEDS GIVEN. ENDORSED TO PETER SANTIAGO FOR ELO.
--- NOTE | 2022-08-07 10:30 | NUR ---
ms rn received patient awake, oriented x1-2, not in any distress, respirations even and unlabored ,no sob noted, l, came in w/ sob exacerbation, no distress noted, sr on monitor, will monitor patient.
--- NOTE | 2022-08-07 12:39 | NUR ---
ms rn patient is refusing venous doppler at this time, will try again later.
--- NOTE | 2022-08-07 14:00 | NUR ---
ms rn patient transferred to room 323 bed 2, all needs attended.
[2022-08-07 16:00] VITALS: BP 121/70
[2022-08-07] MEDS: PROSOURCE / PROSTAT (PYXIS) 30 ML UDC GT SCH (17:31)
--- NOTE | 2022-08-07 18:30 | NUR ---
MS RN ON BED, NO DISTRESS NOTED, FOR HD TOMORROW
--- NOTE | 2022-08-07 19:15 | NUR ---
MS OLIVEROS INITIAL NOTES RECEIVED PATIENT IN BED LYING WITH O2 AT 2LITERS VIA NASAL CANULA , ON SEMI FOWLERS POSITION WITH SIDE RAILS X2 UP ,RE-ORIENTED WHERE SHE AT AND HOW TO USED THE CALL LIGHT SYSTEM. HEPLOCK ON HER LEFT FOREARM PATENT AND INTACT .NO SIGNS OF ANY DISTRESS OR ANY DISCOMFORT NOTED. KEPT HER WARM AND COMFORTABLE AT ALL TIMES. WILL CONTINUE MONITORING. PLACE CALL LIGHT AT REACH.
[2022-08-07 20:00] VITALS: BP 105/52
[2022-08-07] MEDS: CEFTRIAXONE 1 G in IV D5W 50 ML IV SCH (20:36)
--- NOTE | 2022-08-07 21:00 | NUR ---
ms glen notes Rocephine IVP bag hung by another nurse. Fannie care done applied z-guard to affected area. reposition pt for comfort. will continue monitoring.
[2022-08-07] MEDS: ATORVASTATIN 10 MG TABLET PO SCH (21:46)
[2022-08-08 07:00] VITALS: BP 107/72
--- NOTE | 2022-08-08 07:03 | NUR ---
MS MANAGER INPATIENT CLOSING NOTES Pt remains sleeping on her bed without any acute distress noted. Stable throughout the night and slept well. Hemodialysis nurse came and setting up the machine to dialyze the patient. endorse to him for blood draw because pt still refusing blood draw earlier from different site and she scared to poke her again even I told her why she needs it. due meds given and no adverse reaction noted. Morning care done and skin care as well. kept her warm and comfortable at all times. bed in low and lock in position with side rails X2 up. place call light at reach. Will endorse to am nurse for continuity of care.
--- NOTE | 2022-08-08 07:15 | NUR ---
MS RN OPENING NOTES: RECEIVED PATIENT IN BED AWAKE,A/OX 2-3, RIGHT SIDED HARD OF HEARING, OTHERWISE ABLE TO VERBALIZE NEEDS. PATIENT ON HD PROCEDURE AT THIS TIME. ON O2 AT 2LP, NO SOB OR DISTRESS NOTED. DENIES PAIN OR DISCOMFORT AT THIS TIME. WITH LEFT IV ACCESS L FA #22G, SL, PATENT AND INTACT. RIGHT CHEST WALL PERMA CATH FOR HD ACCESS. ALL SAFETY PRECAUTIONS MAINTAINED, CALL LIGHT AND TABLE WITHIN EASY REACH, WILL CONTINUE TO MONITOR THE PATIENT
[2022-08-08] MEDS: ALBUTEROL FS 2.5 MG/0.5 ML VIAL.NEB NEB SCH ×4 (07:46→20:21)
[2022-08-08] MEDS: IPRATROPIUM NEB FS 0.5 MG/2.5 ML AMPUL.NEB NEB SCH ×4 (07:46→20:21)
[2022-08-08] MEDS: SEVELAMER CARBONATE 800 MG TABLET PO SCH ×3 (07:49→17:01)
[2022-08-08] MEDS: PANTOPRAZOLE 40 MG TABLET.DR PO SCH (07:50)
[2022-08-08] MEDS ORDERED: EPOETIN ALFA-EPBX 10,000 UNIT/ML VIAL IV ONE (08:00)
[2022-08-08] MEDS: methylPREDNISolone SOD SUCC 40 MG/ML VIAL IV SCH ×3 (08:12→16:23)
[2022-08-08] MEDS: ASPIRIN 81 MG TAB.CHEW PO SCH (08:12)
[2022-08-08] MEDS: CHOLECALCIFEROL 1,000 UNIT TABLET (VIT D3) PO SCH (08:12)
[2022-08-08] MEDS: DONEPEZIL 5 MG TABLET PO SCH (08:13)
[2022-08-08] MEDS: DIVALPROEX SODIUM 500 MG TABLET.DR PO SCH (08:13)
[2022-08-08] MEDS: TIMOLOL 0.5% SOLN OPHTH 5 ML BOTTLE EACHEYE SCH ×2 (08:19→17:47)
[2022-08-08 08:21] LABS: HEMATOCRIT 25 % (33-45); HEMOGLOBIN 8.2 g/dL (11.5-14.8); LYMPHOCYTES # (AUTO) 0.8 K/uL (0.8-4.8); LYMPHOCYTES % (AUTO) 12.3 % (20.0-44.0); MEAN CORPUSCULAR HGB CONC 33 g/dl (31.0-36.0); MEAN CORPUSCULAR VOLUME 100 fL (82-100); MONOCYTES # (AUTO) 0.2 K/uL (0.1-1.30); MONOCYTES % (AUTO) 3.6 % (2.0-12.0); NEUTROPHILS # (AUTO) 5.5 K/uL (1.8-8.9); NEUTROPHILS % (AUTO) 84.1 % (43.0-81.0); PLATELET COUNT (AUTO) 302 K/uL (150-450); WHITE BLOOD COUNT (AUTO) 6.5 K/uL (4.3-11.0)
[2022-08-08] MEDS: LEVETIRACETAM (250 MG) 250 MG TABLET PO SCH ×2 (08:28→16:08)
[2022-08-08] MEDS: HEPARIN SODIUM, PORCINE 5000 UNITS/1 ML VIAL SQ SCH ×3 (08:29→16:23)
[2022-08-08 08:41] LABS: IRON, SERUM 114 ug/dl (50-175); TOTAL IRON BINDING CAPACITY 120 ug/dl (250-450)
[2022-08-08] MEDS: PROSOURCE / PROSTAT (PYXIS) 30 ML UDC GT SCH ×2 (09:00→17:02)
[2022-08-08 09:12] LABS: ALANINE AMINOTRANSFERASE 11 U/L (12-78); ALBUMIN 1.9 g/dL (3.4-5.0); ALKALINE PHOSPHATASE 46 U/L (46-116); ASPARTATE AMINOTRANSFERASE 12 U/L (15-37); BILIRUBIN,TOTAL 0.2 mg/dL (0.2-1.0); CALCIUM, SERUM 8.1 mg/dL (8.5-10.1); CARBON DIOXIDE 27 mmol/L (21-32); CHLORIDE 102 mmol/L (98-107); CREATININE 3.1 mg/dL (0.6-1.3); GLUCOSE 107 mg/dL (74-106); POTASSIUM 3.8 mmol/L (3.5-5.1); SODIUM SERUM 135 mmol/L (136-145); TOTAL PROTEIN, SERUM 4.8 g/dL (6.4-8.2); UREA NITROGEN, BLOOD 42 mg/dL (7-18)
[2022-08-08 09:27] LABS: FERRITIN 1632 ng/mL (8-388)
[2022-08-08 16:00] VITALS: BP 105/54
--- NOTE | 2022-08-08 16:25 | NUR ---
PATIENT REFUSED SOLU-MEDROL 40MG IV & HEPARIN SODIUM 5K UNITS SQ BOTH SCHEDULED FOR 1700
--- NOTE | 2022-08-08 18:27 | NUR ---
MS RN CLOSING NOTES PATIENT AWAKE IN BED NO SOB OR NOTED, TOLERATING O2 AT 2LPM. AFEBRILE. NO S/S OF PAIN OR DISCOMFORT AT THIS TIME. LEFT FOREARM IV ACCESS #22G INTACT, C/D/I. ALL DUE MEDS GIVEN, SOME WERE REFUSED, ALL NEEDS ATTENDED. SAFETY PRECAUTIONS MAINTAINED. WILL ENDORSE TO SCROLL MACHINE OPERATOR RN FOR ELO.
--- NOTE | 2022-08-08 19:30 | NUR ---
MS RN OPENING NOTES: RECEIVED PATIENT IN BED AWAKE,A/OX 2-3 ABLE TO MAKE NEEDS KNOWN.RIGHT SIDED HARD OF HEARING . ON O2 INHALATION VIA NASAL CANNULA AT 2L/MIN. NO SOB OR DISTRESS NOTED. DENIES PAIN OR DISCOMFORT AT THIS TIME. IV ACCESS L FA #22G, SL, PATENT AND INTACT. RIGHT CHEST WALL PERMA CATH FOR HD ACCESS. S/P DIALYSIS THIS MORNING. ALL SAFETY PRECAUTIONS MAINTAINED, CALL LIGHT AND TABLE WITHIN EASY REACH, SIDE RAILS UP TIMES 2. CALL LIGHT AND TABLE IN EASY REACH.WILL CONTINUE TO MONITOR CLOSELY.
[2022-08-08 20:00] VITALS: BP 97/52
[2022-08-08] MEDS: CEFTRIAXONE 1 G in IV D5W 50 ML IV SCH (20:34)
[2022-08-08] MEDS: ATORVASTATIN 10 MG TABLET PO SCH (21:00)
--- NOTE | 2022-08-09 06:44 | NUR ---
MS RN CLOSING NOTES: PATIENT IN BED AWAKE,A/OX 2-3 ABLE TO MAKE NEEDS KNOWN.RIGHT SIDED HARD OF HEARING . ON O2 INHALATION VIA NASAL CANNULA AT 2L/MIN. NO SOB OR DISTRESS NOTED. DENIES PAIN OR DISCOMFORT AT THIS TIME. IV ACCESS L FA #22G, SL, PATENT AND INTACT. RIGHT CHEST WALL PERMA CATH FOR HD ACCESS INTACT. NO BLEEDING NOTED. DUE MEDS GIVEN ORDERED. ALL SAFETY PRECAUTIONS MAINTAINED, CALL LIGHT AND TABLE WITHIN EASY REACH, SIDE RAILS UP TIMES 2. CALL LIGHT AND TABLE IN EASY REACH.WILL ENDORSE FOR ELO.
--- NOTE | 2022-08-09 07:10 | NUR ---
MS RN OPENING NOTES: RECEIVED PATIENT IN BED AWAKE,A/OX 2-3, RIGHT SIDED HARD OF HEARING, OTHERWISE ABLE TO VERBALIZE NEEDS. ON O2 AT 2LP, NO SOB OR DISTRESS NOTED. DENIES PAIN OR DISCOMFORT AT THIS TIME. WITH LEFT IV ACCESS LFA #22G, SL, PATENT AND INTACT. RIGHT CHEST WALL PERMA CATH FOR HD ACCESS. ALL SAFETY PRECAUTIONS MAINTAINED, CALL LIGHT AND TABLE WITHIN EASY REACH, WILL CONTINUE TO MONITOR THE PATIENT
[2022-08-09] MEDS: PANTOPRAZOLE 40 MG TABLET.DR PO SCH (07:30)
[2022-08-09] MEDS: IPRATROPIUM NEB FS 0.5 MG/2.5 ML AMPUL.NEB NEB SCH ×4 (08:02→20:08)
[2022-08-09] MEDS: ALBUTEROL FS 2.5 MG/0.5 ML VIAL.NEB NEB SCH ×4 (08:02→20:08)
[2022-08-09] MEDS: DIVALPROEX SODIUM 500 MG TABLET.DR PO SCH (08:41)
[2022-08-09] MEDS: DONEPEZIL 5 MG TABLET PO SCH (08:41)
[2022-08-09] MEDS: LEVETIRACETAM (250 MG) 250 MG TABLET PO SCH ×2 (08:41→16:53)
[2022-08-09] MEDS: CHOLECALCIFEROL 1,000 UNIT TABLET (VIT D3) PO SCH (08:41)
[2022-08-09] MEDS: SEVELAMER CARBONATE 800 MG TABLET PO SCH ×3 (08:41→17:04)
[2022-08-09] MEDS: ASPIRIN 81 MG TAB.CHEW PO SCH (08:41)
[2022-08-09] MEDS: TIMOLOL 0.5% SOLN OPHTH 5 ML BOTTLE EACHEYE SCH ×2 (08:43→16:51)
[2022-08-09] MEDS: PROSOURCE / PROSTAT (PYXIS) 30 ML UDC GT SCH ×2 (08:45→16:51)
[2022-08-09] MEDS: methylPREDNISolone SOD SUCC 40 MG/ML VIAL IV SCH ×2 (08:49→16:56)
[2022-08-09] MEDS: HEPARIN SODIUM, PORCINE 5000 UNITS/1 ML VIAL SQ SCH ×2 (08:57→16:52)
[2022-08-09] MEDS: CEFTRIAXONE 1 G in IV D5W 50 ML IV SCH (20:37)
[2022-08-09] MEDS: ATORVASTATIN 10 MG TABLET PO SCH (21:12)
--- NOTE | 2022-08-10 06:25 | NUR ---
MS RN CLOSING NOTES PATIENT ASLEEP IN BED BUT EASILY AROUSABLE ON VOICE COMMANDS AND TACTILE STIMULI. NO SOB OR ANY FORM OF DISTRESS NOTED, TOLERATING O2 AT 2LPM. ON NASAL CANNULA. AFEBRILE, NO S/S OF PAIN OR DISCOMFORT AT THIS TIME. LEFT FOREARM IV ACCESS #22G INTACT, C/D/I. ALL DUE MEDS GIVEN, ALL NEEDS ATTENDED. SAFETY PRECAUTIONS MAINTAINED. WILL ENDORSE TO DAY SHIFT RN FOR ELO.
[2022-08-10 07:00] VITALS: BP 124/63
[2022-08-10] MEDS: ALBUTEROL FS 2.5 MG/0.5 ML VIAL.NEB NEB SCH ×3 (07:35→15:30)
[2022-08-10] MEDS: IPRATROPIUM NEB FS 0.5 MG/2.5 ML AMPUL.NEB NEB SCH ×3 (07:35→15:30)
[2022-08-10] MEDS: PANTOPRAZOLE 40 MG TABLET.DR PO SCH (07:43)
[2022-08-10] MEDS: SEVELAMER CARBONATE 800 MG TABLET PO SCH ×3 (07:43→17:25)
--- NOTE | 2022-08-10 07:53 | NUR ---
RN OPENING NOTE- PT IN BED ASLEEP, EASILY AWAKENED, A/OX 2-3. ON O2 AT 2LP, NO DYSPNEA. DENIES PAIN. WITH LEFT IV ACCESS LFA #22G, SL, PATENT AND INTACT. RIGHT CHEST WALL PERMA CATH FOR HD ACCESS. ALL SAFETY PRECAUTIONS MAINTAINED, CALL LIGHT AND TABLE WITHIN EASY REACH, WILL CONTINUE TO MONITOR / ASSIST
[2022-08-10] MEDS: CHOLECALCIFEROL 1,000 UNIT TABLET (VIT D3) PO SCH (08:36)
[2022-08-10] MEDS: LEVETIRACETAM (250 MG) 250 MG TABLET PO SCH ×2 (08:37→17:27)
[2022-08-10] MEDS: DONEPEZIL 5 MG TABLET PO SCH (08:37)
[2022-08-10] MEDS: methylPREDNISolone SOD SUCC 40 MG/ML VIAL IV SCH (08:37)
[2022-08-10] MEDS: ASPIRIN 81 MG TAB.CHEW PO SCH (08:37)
[2022-08-10] MEDS: DIVALPROEX SODIUM 500 MG TABLET.DR PO SCH (08:37)
[2022-08-10] MEDS: HEPARIN SODIUM, PORCINE 5000 UNITS/1 ML VIAL SQ SCH ×2 (08:39→17:26)
[2022-08-10] MEDS: PROSOURCE / PROSTAT (PYXIS) 30 ML UDC GT SCH ×2 (08:55→17:25)
[2022-08-10] MEDS: TIMOLOL 0.5% SOLN OPHTH 5 ML BOTTLE EACHEYE SCH ×2 (08:55→17:25)
[2022-08-10 16:00] VITALS: BP 118/59
[2022-08-10] MEDS ORDERED: methylPREDNISolone SOD SUCC 40 MG/ML VIAL IV SCH (17:00)
--- NOTE | 2022-08-10 18:13 | NUR ---
RN DC NOTE- PT DC AT THIS TIME TO [facility]. REPORT PHONED INTO FACILITY. VS STABLE. IV SITE REMOVED, ID WRISTBAND REMOVED. DC PLAN GIVEN TO FACILITY. ESCORTED OFF UNIT BY AMBULANCE STAFF
[2022-08-11] MEDS ORDERED: methylPREDNISolone SOD SUCC 40 MG/ML VIAL IV SCH (09:00)
== END 2022-08-10 18:15 | DRG 189 ==
LOC: ER 18:23 → TELE 22:09 → MED 08-07 09:53
PROVIDERS: ADMIT Internal Medicine; ATTEND Internal Medicine
PROC: 5A1D70Z Performance of Urinary Filtration, Intermittent, Less than 6 Hours Per Day (ICD-10-PCS; principal; 2022-08-06)
DX: J96.21 Acute and chronic respiratory failure with hypoxia (principal); E43 Unspecified severe protein-calorie malnutrition; N18.6 End stage renal disease; J44.1 Chronic obstructive pulmonary disease with (acute) exacerbation; Z68.1 Body mass index [BMI] 19.9 or less, adult; J44.0 Chronic obstructive pulmonary disease with (acute) lower respiratory infection; J90 Pleural effusion, not elsewhere classified; F03.A3 Unspecified dementia, mild, with mood disturbance; I13.2 Hypertensive heart and chronic kidney disease with heart failure and with stage 5 chronic kidney disease, or end stage renal disease; K51.90 Ulcerative colitis, unspecified, without complications; E87.5 Hyperkalemia; H40.9 Unspecified glaucoma; D63.1 Anemia in chronic kidney disease; I50.9 Heart failure, unspecified; G40.909 Epilepsy, unspecified, not intractable, without status epilepticus; F39 Unspecified mood [affective] disorder; F09 Unspecified mental disorder due to known physiological condition; D72.829 Elevated white blood cell count, unspecified; J20.9 Acute bronchitis, unspecified; Z74.01 Bed confinement status; Z79.82 Long term (current) use of aspirin; Z87.891 Personal history of nicotine dependence; M19.90 Unspecified osteoarthritis, unspecified site; Z96.641 Presence of right artificial hip joint; Z99.2 Dependence on renal dialysis; Z99.81 Dependence on supplemental oxygen
CPT/HCPCS: 36415; 71045-TC; 76700-TC; 80048-TC; 80053-TC; 80164-TC; 82607-TC; 82728-TC; 82962-TC; 83540-TC; 83605-TC; 83735-TC; 83880; 84100-TC; 84443-TC; 84484-TC; 85025-TC; 86706; 87040-TC; 87081-TC; 87340; 90935-TC; 93307-TC; 94799-TC; A4223; C9803; G0378; J0696; J0885; J1644; J1815; J2920; J2997; J7030; J7050; J7060

== ENCOUNTER 2025-06-02 12:36 | Inpatient (IN) | payer MEDICARE, OTHER ==
[~2025-06-02] VITALS: Ht 142.2 cm; Wt 44.5 kg
[2025-06-02] MEDS ORDERED: AMLO-212 PO (14:15)
[2025-06-02] MEDS ORDERED: ATOR10TA PO (14:15)
[2025-06-02] MEDS ORDERED: MIDO2.5T PO (14:15)
[2025-06-02] MEDS ORDERED: NA P133E RC (14:15)
[2025-06-02] MEDS ORDERED: DOCU250C14 PO (14:15)
[2025-06-02] MEDS ORDERED: BRIM5DRO11 EACHEYE (14:15)
[2025-06-02] MEDS ORDERED: ACET-868 PO (14:15)
[2025-06-02] MEDS ORDERED: FOLI0.8T23 PO (14:15)
[2025-06-02] MEDS ORDERED: BISA10SU11 RC (14:15)
[2025-06-02] MEDS ORDERED: LORA-259 PO (14:15)
[2025-06-02] MEDS ORDERED: SEVE2.4P PO (14:15)
[2025-06-02] MEDS ORDERED: LATA7.5D EACHEYE (14:15)
[2025-06-02] MEDS ORDERED: LUBI24CA5 PO (14:15)
[2025-06-02] MEDS ORDERED: MAGN400O6 PO (14:15)
[2025-06-02] MEDS ORDERED: CHOL100043 PO (14:15)
[2025-06-02] MEDS ORDERED: MIRT-73 PO (14:15)
[2025-06-02] MEDS ORDERED: AMIN30LI2 PO (14:15)
[2025-06-02] MEDS ORDERED: BISA5TAB10 PO (14:15)
[2025-06-02] MEDS ORDERED: PANT40TA2 PO (14:15)
[2025-06-02] MEDS ORDERED: FERR324T4 PO (14:15)
[2025-06-02] MEDS ORDERED: HALOPERIDOL LACTATE INJ 5 MG/ML VIAL ONE (14:32)
[2025-06-02] MEDS: HALOPERIDOL LACTATE INJ 5 MG/ML VIAL IM ONE (14:45)
[2025-06-02 15:00] LABS: CALCIUM, SERUM 9.2 mg/dL (8.5-10.1); CREATININE 2.5 mg/dL (0.6-1.3); SODIUM SERUM 138 mmol/L (136-145); UREA NITROGEN, BLOOD 15 mg/dL (7-18)
[2025-06-02 15:05] LABS: ALCOHOL, BLOOD < 3 mg/dL (0-10); ASPARTATE AMINOTRANSFERASE 18 U/L (15-37); TOTAL PROTEIN, SERUM 6.7 g/dL (6.4-8.2)
[2025-06-02 15:42] LABS: PLATELET COUNT (AUTO) 351 K/uL (150-450); RED BLOOD CELL COUNT(AUTO) 3.61 MIL/uL (4.0-5.2); RED CELL DISTRIBUTION WIDTH 21.2 % (11.5-15.0); WHITE BLOOD COUNT (AUTO) 8.7 K/uL (4.3-11.0)
[2025-06-02 15:59] LABS: APPEARANCE,URINE CLEAR (CLEAR); BLOOD, URINE NEGATIVE Ery/uL (NEGATIVE); LEUKOCYTE ESTERASE ,URINE 1+ (NEGATIVE); NITRITE, URINE NEGATIVE (NEGATIVE); UGLUCOSE NEGATIVE (NEGATIVE)
[2025-06-02 16:08] LABS: AMPHETAMINE, URINE NEGATIVE (NEGATIVE); BARBITURATE, URINE NEGATIVE (NEGATIVE); BENZODIAZEPINE, URINE NEGATIVE (NEGATIVE); CANNABINOID, URINE NEGATIVE (NEGATIVE); COCCAINE, URINE NEGATIVE (NEGATIVE); OPIATE, URINE NEGATIVE (NEGATIVE)
[2025-06-02 16:26] LABS: ADD URINE CULTURE YES
[2025-06-02] MEDS: CEFTRIAXONE 1 G VIAL IM ONE (17:30)
[2025-06-02] MEDS ORDERED: CEFTRIAXONE 1 G VIAL ONE (19:27)
[2025-06-02] MEDS ORDERED: BISACODYL SUPP (10 MG) 10 MG/SUPP.RECT SUPP.RECT RC PRN (20:30)
[2025-06-02] MEDS ORDERED: ACETAMINOPHEN 325 MG TABLET PO PRN (20:30)
[2025-06-02] MEDS ORDERED: MAGNESIUM HYDROXIDE 30 ML UDC PO PRN ×2 (20:30)
[2025-06-02] MEDS ORDERED: ONDANSETRON HCL/PF 4 MG/2 ML VIAL IVP PRN (20:30)
[2025-06-02] MEDS ORDERED: Z GUARD REMEDY 4 OZ OINT TP PRN (20:30)
[2025-06-02] MEDS ORDERED: MAG HYDROX/AL HYDROX/SIMETH 30 ML UDC PO PRN (20:30)
[2025-06-02] MEDS ORDERED: NA PHOS,M-B/NA PHOS,DI-BA 1 EA ENEMA RC PRN (20:30)
[2025-06-02] MEDS ORDERED: BISACODYL (5 MG) 5 MG TABLET.DR PO PRN (20:30)
[2025-06-02] MEDS ORDERED: TEMAZEPAM 15 MG CAPSULE PO PRN (20:30)
[2025-06-02 22:00] VITALS: BP 137/68; TEMP 97.5; O2SAT 98
[2025-06-02] MEDS: LATANOPROST EYE DROP 0.005% 2.5 ML BOTTLE OP SCH (22:00)
[2025-06-02] MEDS: CEPHALEXIN MONOHYDRATE 500 MG CAPSULE PO SCH (22:33)
[2025-06-02] MEDS: ATORVASTATIN 10 MG TABLET PO SCH (22:34)
[2025-06-02] MEDS: LEVETIRACETAM (250 MG) 250 MG TABLET PO SCH (22:34)
[2025-06-02] MEDS: MIRTAZAPINE SOLUTAB 15 MG/UDTABLET TAB.RAPDIS PO SCH (22:34)
[2025-06-03 06:44] LABS: PLATELET COUNT (AUTO) 265 K/uL (150-450); RED BLOOD CELL COUNT(AUTO) 3.24 MIL/uL (4.0-5.2); RED CELL DISTRIBUTION WIDTH 17.6 % (11.5-15.0); WHITE BLOOD COUNT (AUTO) 5.7 K/uL (4.3-11.0)
[2025-06-03 07:14] LABS: CALCIUM, SERUM 8.9 mg/dL (8.5-10.1); CREATININE 3.1 mg/dL (0.6-1.3); PHOSPHORUS 3.8 mg/dL (2.5-4.9); SODIUM SERUM 133.0 mmol/L (136-145); UREA NITROGEN, BLOOD 18.0 mg/dL (7-18)
[2025-06-03] MEDS ORDERED: PANTOPRAZOLE 40 MG TABLET.DR PO SCH (07:30)
[2025-06-03 07:45] LABS: LDL 59.0 mg/dL (0-99)
[2025-06-03] MEDS: PANTOPRAZOLE 40 MG TABLET.DR PO SCH (07:56)
[2025-06-03 08:00] VITALS: BP 136/54; TEMP 97.5; O2SAT 98
[2025-06-03] MEDS: TIMOLOL 0.5% SOLN OPHTH 5 ML BOTTLE EACHEYE SCH (09:00)
[2025-06-03] MEDS: MIDODRINE HCL 2.5 MG TABLET PO SCH (09:00)
[2025-06-03] MEDS: VIT B CMPLX 3/FA/VIT C/BIOTIN 1 TAB TABLET PO SCH (09:00)
[2025-06-03] MEDS: BRIMONIDINE TARTRATE OPHT SOLN 5 ML BOTTLE OP SCH (09:00)
[2025-06-03] MEDS: PROSOURCE / PROSTAT (PYXIS) 30 ML UDC PO SCH (09:00)
[2025-06-03] MEDS: DOCUSATE SODIUM 250 MG CAPSULE PO SCH (10:00)
[2025-06-03] MEDS: CHOLECALCIFEROL 1,000 UNIT TABLET (VIT D3) PO SCH (10:00)
[2025-06-03] MEDS: SEVELAMER CARBONATE 800 MG POWD.PACK PO SCH (10:00)
[2025-06-03] MEDS: ASPIRIN 81 MG TAB.CHEW PO SCH (10:00)
[2025-06-03] MEDS: FERROUS SULFATE (325 MG) 325 MG/TAB TABLET PO SCH (10:01)
[2025-06-03] MEDS: AMLODIPINE BESYLATE 5 MG TABLET PO SCH (10:01)
[2025-06-03] MEDS: DIVALPROEX SODIUM 500 MG TABLET.DR PO SCH (10:01)
[2025-06-03] MEDS: QUETIAPINE FUMARATE 25 MG TABLET PO SCH (12:56)
[2025-06-03 16:00] VITALS: BP 113/73; TEMP 98; O2SAT 98
[2025-06-03 20:00] VITALS: BP 120/59; TEMP 98.2; O2SAT 96
[2025-06-03] MEDS: ACETAMINOPHEN 325 MG TABLET PO PRN (21:57)
[2025-06-04 08:00] VITALS: BP 128/63; TEMP 98.3; O2SAT 98
[2025-06-04] MEDS: MIDODRINE HCL (5MG) 5 MG TABLET PO SCH (08:48)
[2025-06-04] MEDS: NEPRO VAN 237 ML CAN PO SCH (13:56)
[2025-06-04] MEDS: ALTEPLASE CATHFLO 2 MG/VIAL XX ONE (14:51)
[2025-06-04 16:00] VITALS: BP 141/56; TEMP 97.3; O2SAT 100
[2025-06-04 20:00] VITALS: BP 119/52; TEMP 97.3; O2SAT 100
[2025-06-05 08:00] VITALS: BP 124/58; TEMP 98.6; O2SAT 98
[2025-06-05 09:00] VITALS: O2SAT 96
[2025-06-05 16:05] VITALS: BP 113/44; TEMP 97.3; O2SAT 98
[2025-06-05 16:30] VITALS: BP 113/44
[2025-06-05] MEDS: ALBUMIN 25% 25 GM in PREMIX 1 EA IV PRN (17:31)
[2025-06-05 17:35] LABS: PLATELET COUNT (AUTO) 222 K/uL (150-450); RED BLOOD CELL COUNT(AUTO) 2.89 MIL/uL (4.0-5.2); RED CELL DISTRIBUTION WIDTH 16.7 % (11.5-15.0); WHITE BLOOD COUNT (AUTO) 4.4 K/uL (4.3-11.0)
[2025-06-05 17:49] LABS: ASPARTATE AMINOTRANSFERASE 16.0 U/L (15-37); CALCIUM, SERUM 7.9 mg/dL (8.5-10.1); CREATININE 1.0 mg/dL (0.6-1.3); PHOSPHORUS 1.6 mg/dL (2.5-4.9); SODIUM SERUM 138.0 mmol/L (136-145); TOTAL PROTEIN, SERUM 6.4 g/dL (6.4-8.2); UREA NITROGEN, BLOOD 8.0 mg/dL (7-18)
[2025-06-05] MEDS: EPOETIN ALFA (20,000 UNIT) 20,000 UNIT/ML VIAL SQ ONE (19:18)
== END 2025-06-05 20:07 | DRG 689 ==
LOC: ER 14:34 → GPS 18:53 → MED 20:50
PROVIDERS: ADMIT Nurse Practitioner Acute Care
PROC: 5A1D70Z Performance of Urinary Filtration, Intermittent, Less than 6 Hours Per Day (ICD-10-PCS; principal; 2025-06-04)
DX: N39.0 Urinary tract infection, site not specified (principal); E43 Unspecified severe protein-calorie malnutrition; G93.41 Metabolic encephalopathy; N18.6 End stage renal disease; I12.0 Hypertensive chronic kidney disease with stage 5 chronic kidney disease or end stage renal disease; R64 Cachexia; D63.8 Anemia in other chronic diseases classified elsewhere; F29 Unspecified psychosis not due to a substance or known physiological condition; F01.C3 Vascular dementia, severe, with mood disturbance; Z99.2 Dependence on renal dialysis; B96.89 Other specified bacterial agents as the cause of diseases classified elsewhere; F32.A Depression, unspecified; J44.9 Chronic obstructive pulmonary disease, unspecified; G40.909 Epilepsy, unspecified, not intractable, without status epilepticus; F39 Unspecified mood [affective] disorder; E78.5 Hyperlipidemia, unspecified; H40.9 Unspecified glaucoma; K29.70 Gastritis, unspecified, without bleeding; Z66 Do not resuscitate; Z79.82 Long term (current) use of aspirin; Z79.899 Other long term (current) drug therapy; M62.50 Muscle wasting and atrophy, not elsewhere classified, unspecified site; Z68.22 Body mass index [BMI] 22.0-22.9, adult
CPT/HCPCS: 36415; 71045-TC; 80048-TC; 80053-TC; 80061-TC; 80076-TC; 81001; 83735-TC; 84100-TC; 84443-TC; 85025-TC; 87086-TC; 90935-TC; 94799-TC; 97110-TC; 97112-TC; 97530-TC; A4216; G0378; G0480; J0696; J0885; J1630; J2405; J2997; J7030; P9047